=== PATIENT | male | born 1935 | race African-American/Black ===

== ENCOUNTER 2021-02-17 11:31 | Outpatient (CLI) | payer OTHER | END 2021-02-17 11:37 | disposition home or self-care (01) | LOC: RAD 11:31 | PROVIDERS: ATTEND Physical Medicine & Rehabilitation | DX: M54.2 Cervicalgia (principal); M62.830 Muscle spasm of back ==

== ENCOUNTER 2022-02-19 11:28 | Outpatient (CLI) | payer OTHER | END 2022-02-19 11:35 | disposition home or self-care (01) | LOC: RAD 11:28 | PROVIDERS: ATTEND Internal Medicine Geriatric Medicine | DX: R05.1 Acute cough (principal); Z95.1 Presence of aortocoronary bypass graft; I25.10 Atherosclerotic heart disease of native coronary artery without angina pectoris; I10 Essential (primary) hypertension ==